=== PATIENT | male | born 1955 | race Caucasian/White ===

== ENCOUNTER → 2023-10-14 10:18 | Outpatient (REF) | payer OTHER, SELFPAY | LOC: HWRAD 10:18 | PROVIDERS: ATTENDING PHYSICIAN Physician Assistant | DX: M25.471 Effusion, right ankle (principal); I87.2 Venous insufficiency (chronic) (peripheral); R60.0 Localized edema; M79.661 Pain in right lower leg | CPT/HCPCS: 73610; 93971 ==

== ENCOUNTER → 2023-10-29 13:19 | Outpatient (REF) | payer OTHER, SELFPAY | LOC: RAD 13:19 | PROVIDERS: ATTENDING PHYSICIAN Surgery Vascular Surgery; FAMILY PHYSICIAN Family Medicine | DX: I87.2 Venous insufficiency (chronic) (peripheral) (principal) | CPT/HCPCS: 93970 ==

== ENCOUNTER → 2023-11-03 14:55 | Outpatient (REF) | payer OTHER, SELFPAY | LOC: HWRCS 14:55 | PROVIDERS: ATTENDING PHYSICIAN Physician Assistant | DX: R60.0 Localized edema (principal); I10 Essential (primary) hypertension | CPT/HCPCS: 93306 ==

== ENCOUNTER → 2023-11-18 20:18 | Outpatient (REF) | payer OTHER, SELFPAY | LOC: MRI 3T 20:18 | PROVIDERS: ATTENDING PHYSICIAN Student in an Organized Health Care Education/Training Program | DX: M25.571 Pain in right ankle and joints of right foot (principal) | CPT/HCPCS: 73721 ==

== ENCOUNTER 2023-12-23 06:09 | Day surgery (SDC) | payer OTHER, SELFPAY ==
[2023-12-18 09:30] VITALS: BMI 18.8
[2023-12-18 10:41] LABS: INR 1.14; PT 14.6 Sec (11.4-14.6)
[2023-12-18 10:42] LABS: APTT 33.5 Sec (23.4-35.0)
[2023-12-18 10:48] LABS: % Basophils 1.4 % (0-2); % Eosinophils 1.4 % (0-6); % Immature Granulocytes 1.7 % (0-0.5); % Lymphocytes 32.5 % (20.5-51.1); Absolute Immature Granulocytes 0.1 10^3/uL (0-0.05); Absolute Monocytes 0.4 10^3/uL (0.1-0.6); Absolute Neutrophils 1.5 10^3/uL (1.4-6.5); Hematocrit 38.1 % (39.0-52.0); Hemoglobin 13.3 g/dL (13.0-18.0); Mean Corp Hgb Conc. 34.9 g/dL (33.0-37.0); Mean Corpuscular Hgb 32.4 pg (27.0-31.0); Mean Corpuscular Volume 92.9 fL (80.0-94.0); Mean Platelet Volume 9.3 fL (7.4-10.4); Nucleated Red Blood Cells % 0 % (-); Platelet Count 206 10^3/uL (130-400); Red Cell Dist. Width 12.5 % (11.5-14.5); White Blood Cell Count 2.9 10^3/uL (4.8-10.8)
[2023-12-18 11:23] LABS: Blood Urea Nitrogen 14 mg/dl (9-20); Calcium 8.9 mg/dl (8.4-10.2); Carbon Dioxide 27 mmol/L (22-30); Chloride 104 mmol/L (98-107); Estimated Creatinine Clearance 96 ml/min; Glucose 93 mg/dl (70-99); Sodium 137 mmol/L (135-145); eGFR > 60.00
--- NOTE | 2023-12-19 07:49 | PTCARENOTE ---
Patients 12/17 WBC 2.9- Zulma @ Dr. Muñiz office notified
[2023-12-23] VITALS (14 sets, daily range): BP systolic 12–162; BP diastolic 69–85
[2023-12-23] MEDS: NSS 500 IV (06:27)
[2023-12-23] MEDS: PERIDEX 0.12% ORAL RINSE 15 ML PO (06:27)
[2023-12-23] MEDS: BACTROBAN NASAL 1 GRAM NASAL (06:27)
--- NOTE | 2023-12-23 06:52 | HP.FOC2 ---
Focused History & Physical
Chief Complaint
HPI:
Chief Complaint: Right ankle burning, discomfort, swelling
HPI / Indication for Planned Procedure: 68-year-old male with bilateral lower extremity venous insufficiency. Here today for endovenous ablation with Dr. Tobias. Past medical history significant for skin cancer, acne. Venous ultrasound suggests
deep venous reflux bilaterally. Patient is agreeable to planned procedure today.
Relevant Past Medical History: Negative
Relevant Social History: Negative
Relevant Family History: Negative
Relevant Past Surgical History: Positive for (Mohs procedure)
Review of Systems
Review of Pertinent Systems: All Systems Negative
Medication
See Medication form for detailed medications: No
Medication List (including Herbals & OTC):
doxycycline hyclate 20 mg tablet 40 mg PO DAILY 12/15/23
Medications Reviewed: Yes
Allergies and Reactions
Patient has Allergies: No
Noted Allergies and Reactions:
Allergy/AdvReac Type Severity Reaction Status Date / Time
No Known Allergies Allergy Verified 12/23/23 06:28
Pertinent Physical Exam
All Other Systems: Negative
Head/Neck: Normal
Lungs: Normal
Heart: Normal
Abdomen: Normal
Extremities: Other (Swelling)
Diagnosis / Assessment
68-year-old male here today for endovenous ablation of the right greater saphenous vein
Plan / Procedure
Endovenous ablation of the right greater saphenous vein with Dr. Tobias today
Anesthesia/Sedation to be done by Anesthesia Provider: Yes
--- NOTE | 2023-12-23 07:00 | W.SUR.PREOP ---
Pre-Operative Surgical Note
-
I have examined this patient prior to the performance of the scheduled procedure.
The patient's condition is unchanged from the time of the current History and
Physical and the patient is able to undergo the scheduled procedure.
--- NOTE | 2023-12-23 09:28 | OR.RPT ---
Operative Report
Operative Report
Date of Operation: 12/23/2023
Pre Op Diagnosis: Symptomatic venous insufficiency, right lower extremity
Post Op Diagnosis: Symptomatic venous insufficiency, right lower extremity
Procedure: Radiofrequency endovenous ablation of right great saphenous vein (distal calf puncture site)
Surgeon: Leroy Tobias III, MD
System Software Programmer: Dqauan Wood MD PGY-2
Anesthesia: Sedation/local
Complications: None
Estimated Blood Loss: Minimal
History and Indications for Procedure: 68-year-old male
Procedure in Detail: Randy Clark was correctly identified and placed supine on the operating table. After adequate induction of anesthesia the right leg was frog-legged and the table placed into a reverse Trendelenburg position. The right leg
was prepped and draped in the usual sterile fashion. A timeout procedure was performed with the nursing and anesthesia staff confirming the patient's identity as well as the nature and laterality of the procedure.
The right great saphenous vein was identified using ultrasound guidance. The vein was visualized from the ankle to the saphenofemoral junction. An appropriate site for access was identified at the distal calf, just proximal to an area of dark skin
discoloration. Local anesthesia was infiltrated into the proposed puncture site. The right great saphenous vein was accessed with a micropuncture needle under ultrasound guidance and the 7 Mongolian sheath was placed. Under direct ultrasound
guidance the 100 cm length /7 cm tip radiofrequency ablation catheter was advanced towards the saphenofemoral junction. Using a real-time direct ultrasound measurement the tip of the catheter was positioned 3 cm from the saphenofemoral junction.
The position of the catheter was then externally marked using the white plastic doughnut on the catheter at the sheath exit site. Using ultrasound guidance tumescent solution was then infiltrated circumferentially around the great saphenous vein
from the sheath insertion site to the tip of the catheter. All 500 cc of tumescent solution was utilized. At this point the table was flattened out. The right great saphenous vein was then ablated using 2 treatment cycles at each segment. Once
completed the sheath and catheter were removed. Direct manual pressure was held on the puncture site and hemostasis was achieved. A sterile dressing was applied.
The patient's leg was cleaned and then wrapped with an Alex wrap from the toes to the proximal thigh. The patient tolerated the procedure well was taken to the recovery room in good condition.
Attestation: I was present and responsible for the entire procedure
Signed:
Leroy Tobias III, MD
[facility]
[phone] (vzvt)
--- NOTE | 2023-12-23 11:45 | W.IMMPOSTOP ---
Surgical Immed Post Op Note
-
Primary Surgeon: Leroy Tobias III, MD
Assisting Surgeon: Daquan Wood MD
Pre-op Diagnosis: R Venous Insufficiency
Post-op Diagnosis: As above
Procedure Performed: Saphenous Vein Ablation
Anesthesia Type: Sedation
Specimen / Cultures: NA
Estimated Blood Loss: 2cc
Complications: None
Operative Findings: Endovascular ablation performed of GSV without issue.
== END 2023-12-23 10:30 | disposition home or self-care (01) ==
LOC: CATH 06:09
PROVIDERS: ATTENDING PHYSICIAN Surgery Vascular Surgery; FAMILY PHYSICIAN Family Medicine; OTHER PHYSICIAN Internal Medicine
DX: I83.891 Varicose veins of right lower extremity with other complications (principal); I87.2 Venous insufficiency (chronic) (peripheral); M25.471 Effusion, right ankle; Z85.828 Personal history of other malignant neoplasm of skin
CPT/HCPCS: 36475; 36415; 80048; 85025; 85610; 85730; 93005; C1894

== ENCOUNTER → 2023-12-26 08:44 | Outpatient (REF) | payer OTHER, SELFPAY | LOC: RAD 08:44 | PROVIDERS: ATTENDING PHYSICIAN Surgery Vascular Surgery; FAMILY PHYSICIAN Family Medicine | DX: I83.893 Varicose veins of bilateral lower extremities with other complications (principal); I87.2 Venous insufficiency (chronic) (peripheral) | CPT/HCPCS: 93970; 93971 ==

== ENCOUNTER → 2024-05-20 14:29 | Outpatient (REF) | payer OTHER, SELFPAY | LOC: DHVS 14:29 | PROVIDERS: ATTENDING PHYSICIAN Surgery Vascular Surgery; FAMILY PHYSICIAN Family Medicine | DX: I87.2 Venous insufficiency (chronic) (peripheral) (principal) | CPT/HCPCS: 93971 ==

== ENCOUNTER → 2024-07-01 13:28 | Outpatient (REF) | payer OTHER, SELFPAY | LOC: RAD 13:28 | PROVIDERS: ATTENDING PHYSICIAN Physician Assistant | DX: R19.09 Other intra-abdominal and pelvic swelling, mass and lump (principal) | CPT/HCPCS: 76882 ==

== ENCOUNTER → 2024-07-27 12:17 | Outpatient (REF) | payer OTHER, SELFPAY | LOC: RAD 12:17 | PROVIDERS: ATTENDING PHYSICIAN Surgery; FAMILY PHYSICIAN Family Medicine | DX: K40.90 Unilateral inguinal hernia, without obstruction or gangrene, not specified as recurrent (principal) | CPT/HCPCS: 74177; Q9967 ==

== ENCOUNTER → 2024-12-06 14:30 | Outpatient (REF) | payer OTHER, SELFPAY | LOC: RCS 14:30 | PROVIDERS: ATTENDING PHYSICIAN Internal Medicine; FAMILY PHYSICIAN Physician Assistant | DX: I34.1 Nonrheumatic mitral (valve) prolapse (principal) | CPT/HCPCS: 93306 ==

== ENCOUNTER 2025-01-10 06:20 | Day surgery (SDC) | payer OTHER, SELFPAY ==
[2025-01-10] VITALS (8 sets, daily range): BP systolic 112–131; BP diastolic 55–69; BMI 18.4
[2025-01-10] MEDS: TYLENOL 1000 MG PO (09:04)
[2025-01-10] MEDS: NORMOSOL-R/PLASMALYTE-A 1000 IV (09:06)
[2025-01-10] MEDS: HEPARIN 5000 UNITS SC (09:08)
--- NOTE | 2025-01-10 10:49 | OR.RPT ---
Operative Report
Operative Report
Primary Surgeon: Yumiko
Assisting: Kishore NEVAREZ
Pre-op Diagnosis: Right inguinal hernia
Post-op Diagnosis: Same
Procedure Performed: Robot assisted laparoscopic repair of right inguinal hernia
Anesthesia Type: GETA
Specimen / Cultures: None
Estimated Blood Loss: 5cc
Complications: None immediate
Operative Findings: Femoral and obturator defects, incarcerated omentum in femoral defect; XL MID 3D max
Date of Surgery: 01/10/25
Indications: This 69M developed symptomatic right inguinal hernia. Robot assisted laparoscopic repair was elected.
Description of procedure:� The patient was taken to the operating room and positioned into supine position. The patient�s abdomen was prepped and draped in standard sterile fashion. A time-out was completed verifying correct patient, procedure,
site, positioning, and implants and special equipment prior to beginning this procedure. The groin hernias were manually reduced.
A stab incision was made in the left upper quadrant, a Veress needle was inserted and proper position was confirmed by aspiration and saline drop test. Following this, pneumoperitoneum was created with insufflation of carbon dioxide to 12 mmHg. Then
a 8mm robotic trocar was inserted above and to the left of the umbilicus. A laparoscope was inserted and the area of initial trocar entry and Veress needle placement were both inspected and no injuries were found. Two 8mm trocars were then placed
lateral to the rectus sheath under direct visualization.
Both inguinal regions were inspected and the median umbilical ligament, medial umbilical ligament, and lateral umbilical fold were identified. Attention was turned to the right groin. A flap of omentum was incarcerated in a femoral defect. This
was reduced. The peritoneum was incised transversely above the defect and a flap was developed in the caudad direction. Calin�s ligament was identified ultimately dissected to its junction with the iliac vein and the space of Retzius was developed
bluntly. The dissection was continued inferiorly to the iliopubic tract, with care taken to avoid injury to the femoral branch of the genitofemoral nerve and the lateral femoral cutaneous nerve. The cord structures were parietalized.
The direct space was inspected and a hernia defect was not identified. The femoral space was inspected and a defect was identified. Reduction was challenging and the lacunar ligament was released for about 1mm to aid reduction. The defect had a
fascial bridge diving it into two spaces. A large amount of fat was reduced from an obturator defect as well. The indirect space was inspected and no defect was identified. The canal was inspected and no cord lipoma was identified.
Extra large right MID 3D max mesh was passed through a trocar. The mesh was placed into the preperitoneal space and moved into position to lay flat and completely cover the direct, indirect, obturator and femoral spaces with overlap at the midline.
The mesh was secured into place using 2-0 vicryl suture to Calin�s ligament medially and laterally as well as a stay stitch to the abdominal wall inferior to the obturator defect. Care was taken to avoid the inferolateral triangles containing the
iliac vessels and genital nerves. The peritoneal flap was closed over the mesh and secured with 2-0 monocryl stratafix suture in similar positions of safety. A 14g angiocath was used to decompress the preperitoneal space revealing good seal and all
mesh in good position without folding or curling.
After ensuring adequate hemostasis, the trocars were removed and the pneumoperitoneum allowed to escape. The trocar incisions were closed at the skin level using 4-0 monocryl and topical skin adhesive. All counts were correct and the patient
tolerated the procedure well and was taken to the postanesthesia care unit in stable condition.
== END 2025-01-10 12:45 | disposition home or self-care (01) ==
LOC: SDS 06:20
PROVIDERS: ATTENDING PHYSICIAN Surgery
DX: K40.90 Unilateral inguinal hernia, without obstruction or gangrene, not specified as recurrent (principal)
CPT/HCPCS: 49650; C1781